=== PATIENT | female | born 1950 | race Caucasian/White ===

== ENCOUNTER 2016-11-19 12:10 | Emergency (ER) | payer OTHER ==
[~2016-11-19] VITALS: Ht 162.6 cm; Wt 118.2 kg
[~2016-11-19 12:10] MED LIST: GLYBURIDE; LOTREL; METFORMIN; Nexium PO
[2016-11-19] MEDS ORDERED: LIDODERM 5% P1 PATCH TD (15:27)
[2016-11-19] MEDS ORDERED: BACLOFEN10 MG PO (15:27)
[2016-11-19] MEDS ORDERED: NAPROSYN500 MG PO (15:27)
[2016-11-19 16:11] VITALS: BP 114/78
== END 2016-11-19 16:17 | disposition home or self-care (01) ==
LOC: EME 12:10
DX: G89.29 Other chronic pain (principal); M54.42 Lumbago with sciatica, left side; M51.16 Intervertebral disc disorders with radiculopathy, lumbar region; E11.9 Type 2 diabetes mellitus without complications; I10 Essential (primary) hypertension; Z88.8 Allergy status to other drugs, medicaments and biological substances
CPT/HCPCS: 99281; 99284; J1100

== ENCOUNTER 2017-02-11 13:13 | Day surgery (SDC) | payer OTHER ==
[~2017-02-11] VITALS: Ht 165.1 cm; Wt 111.1 kg
[~2017-02-11 13:13] MED LIST changes: +AMLODIPINE-BEN1 EAC4 PO; +ASPIR-LOW81 MG PO; +BACLOFEN10 MG PO; +CARVEDILOL25 MG PO; +GLIPIZIDE10 MG PO; +LIDODERM 5% P1 PATCH TD; +NAPROSYN500 MG PO; +NEXIUM40 MG PO; +VALIUM5 MG PO; +VITAMIN D31000 UNI2 PO
== END 2017-02-11 14:00 | disposition home or self-care (01) ==
LOC: CATH 13:13
DX: R07.9 Chest pain, unspecified (principal); I50.9 Heart failure, unspecified; Z53.9 Procedure and treatment not carried out, unspecified reason

== ENCOUNTER 2017-02-18 07:00 | Day surgery (SDC) | payer OTHER ==
[~2017-02-18] VITALS: Ht 165.1 cm; Wt 111.1 kg
[2017-02-18 08:06] LABS: POINT-OF-CARE METER ID UU13113696
[2017-02-18 08:45] LABS: MCH 33.1 PG (29.0-34.0); MCHC 32.6 G/DL (30.0-36.0); MCV 101.6 FL (83-99); MEAN PLAT.VOLUME 13.5 uM^3 (9.5-12.4); PLATELET COUNT 82 K/uL (156-360); RBC DIS.WIDTH-CV 13.2 % (11.8-14.6); RBC DIS.WIDTH-SD 49.5 % (39-53); RED BLOOD COUNT 3.84 M/uL (3.80-5.20)
[2017-02-18 09:17] LABS: ANION GAP 9 MEQ/L (2-14); CHLORIDE 108 MEQ/L (99-109); GFR ESTIMATE (CALCULATED) > 59 mL/min/; GLUCOSE 131 mg/dL (70-99); POTASSIUM 4.1 MEQ/L (3.7-5.4); SAMPLE HEMOLYSIS CHECK 0; SAMPLE ICTERIC CHECK 0; SAMPLE LIPEMIA CHECK 0; SODIUM 142 MEQ/L (136-147); UREA NITROGEN (BUN) 9 mg/dL (9-23)
== END 2017-02-18 14:30 | disposition home or self-care (01) ==
LOC: CATH 07:00
PROVIDERS: Internal Medicine Cardiovascular Disease
DX: I25.10 Atherosclerotic heart disease of native coronary artery without angina pectoris (principal); I27.2 Other secondary pulmonary hypertension; I11.0 Hypertensive heart disease with heart failure; I50.30 Unspecified diastolic (congestive) heart failure; E11.9 Type 2 diabetes mellitus without complications; J45.909 Unspecified asthma, uncomplicated; Z68.41 Body mass index [BMI] 40.0-44.9, adult; Z88.8 Allergy status to other drugs, medicaments and biological substances
CPT/HCPCS: 80048; 82948; 85027; 93005; C1760; C1769; C1887; C1894; J1644; J2250; J3010